=== PATIENT | female | born 1980 | race Caucasian/White ===

== ENCOUNTER 2021-04-14 13:07 | Outpatient (CLI) | payer OTHER, SELFPAY ==
--- NOTE | 2021-04-18 21:33 | WPDPFTINT ---
PFT Procedure Performed PFT Procedure Performed Spirometry with Pre/Post Bronchodilator Plethysmography (Lung Vol) Diffusing Cap (DLCO) Flow Vol Loop PFT Interpretation DOS: 04/14/2021 REQUESTING: Leoncio Wells MD REASON FOR TESTING: moderate persistent asthma PULMONARY FUNCTION TESTS Results are reliable and reproducible. Spirometry: FEV1 is 84% predicted, 2.31 L normal. FVC is 84% predicted normal. The FEV1/FVC ratio is normal. BOS18-49% is 62% predicted. After bronchodilator administration the FEV1 increases by 13% and 300 mL which is significant. The HRG98-90% increases by 40%. Lung volumes: Total lung capacity is 88% normal. Residual volume is 87% predicted. RV/TLC is 33 %, normal. Airway resistance is 121%, normal. Diffusion: DLCO is 80%, normal. Flow volume loop: Normal. IMPRESSION: This pulmonary function study with bronchodilator shows normal spirometry, normal lung volumes and diffusion capacity. Normal airway resistance. There is a statistically significant increase in the FEV1 with a 13% response to bronchodilator. There is also a significant response to bronchodilator in the small airways. This pattern may be seen in asthma. Shira Umanzor MD
== END 2021-04-14 13:08 | disposition home or self-care (01) ==
PROVIDERS: PCP Emergency Medicine; Visit Provider Allergy & Immunology
DX: J45.40 Moderate persistent asthma, uncomplicated (principal)
CPT/HCPCS: 94060; 94726; 94729

== ENCOUNTER 2023-11-21 16:39 | Emergency (ER) | payer OTHER, SELFPAY ==
[2023-11-21 16:52] VITALS: BP 153/92; PULSE 69; RESP 20; TEMP 36.6; O2SAT 100
--- NOTE | 2023-11-21 17:02 | ED.GENADULT ---
HPI - General Adult General Chief complaint: Skin/Abscess/Foreign Body Stated complaint: Rash Source: patient, RN notes reviewed and old records reviewed Mode of arrival: ambulatory Limitations: no limitations History of Present Illness HPI narrative: 42-year-old female presents to [facility] with complaint of rash under both breasts this started several days ago rash is now also on arms, back, chest. Patient states rash is pruritic. Patient taking Benadryl for itching. Related Data Home Medications Medication Instructions Recorded Confirmed albuterol sulfate 90 mcg/actuation inhalation 11/21/23 aerosol inhaler levothyroxine 75 mcg tablet mcg 11/21/23 Allergies Allergy/AdvReac Type Severity Reaction Status Date / Time No Known Allergies Allergy Verified 11/21/23 16:52 Review of Systems Constitutional: Constitutional: Reports no additional constitutional complaints, Denies body ache(s), Denies chills, Denies fatigue, Denies fever(s) and Denies headache(s) Eyes: Eyes: Reports no additional eye complaints and Denies blurry vision ENT: Reports system reviewed and no additional complaints, except as documented, Denies vertigo, Denies dizziness, Denies ear discharge, Denies otalgia, Denies facial pain, Denies headache(s), Denies nasal congestion, Denies nasal discharge, Denies sinus pain, Denies sinus pressure and Denies sore throat Cardiovascular: Cardiovascular: Reports no additional cardiovascular complaints, Denies chest pain, Denies chest pain at rest, Denies rapid heart rate and Denies dyspnea Respiratory: Respiratory: Reports no additional respiratory complaints, Denies chest congestion, Denies cough, Denies pain on inspiration, Denies pain with cough and Denies dyspnea Gastrointestinal: Gastrointestinal: Denies abdominal pain, Denies diarrhea, Denies nausea and Denies vomiting Integumentary/Breasts: Skin/Breast: Reports as per HPI, Reports change in pigmentation, Reports erythema and Reports rash Neurologic: Reports system reviewed and no additional complaints, except as documented, Denies vertigo, Denies dizziness and Denies headache(s) Endocrine: Endocrine: Denies fatigue PMFSH Comments At the time of my signature, I reviewed and agree with the nursing past medical, surgical, social, and family history. There is no relevant family history pertinent to the patient complaint. Exam Const: General: cooperative, healthy appearing, no acute distress and well nourished Nutritional Appearance: well nourished Orientation/consciousness: patient oriented x3 Limitations: no limitations HENMT: Head: normal to inspection and normocephalic Ears: external ears normal Face/Nose/Sinus: normal facial exam Face and sinus: normal facial exam Mouth: Yes Normal oral and palatal mucosa present, Yes oropharynx normal and Yes moist mucous membranes Eyes: General: appearance normal, both eyes and all related structures Sclera: sclerae normal Pupils: Equal, round and reactive pupils present Resp: Effort & Inspection: normal respiratory effort, able to speak in complete sentences, no audible wheezes, no cough, no respiratory distress and no retractions Skin: General skin exam: normal color Rashes: rashes noted Full body images: 1. erythematous, warm to touch Neuro: General: patient oriented x3 Cranial nerves: Yes Equal, round and reactive pupils present Psych: Appearance: grossly normal Mental Status: mental status grossly normal Speech and movement: Normal speech and movement present Affect: normal affect Course Course Emergency Course: Patient is aware of diagnosis, understands and agrees to treatment plan.? Anticipatory guidance given.? Patient agrees to follow-up as directed and is aware of reasons to seek care at the emergency department. Some parts of this dictation were generated by voice recognition software and may contain typographical and/or grammatical inaccuracies. Level of Care: Express Ca
== END 2023-11-21 17:11 | disposition home or self-care (01) ==
PROVIDERS: Emergency Provider Registered Nurse; PCP Family Medicine
DX: B37.2 Candidiasis of skin and nail (principal); L03.313 Cellulitis of chest wall; E03.9 Hypothyroidism, unspecified
CPT/HCPCS: 99213; G0463